=== PATIENT | female | born 1980 | race Caucasian/White ===

== ENCOUNTER 2020-06-03 10:57 | Emergency (ER) | payer BC, OTHER ==
[~2020-06-03] VITALS: Ht 170.2 cm; Wt 76.3 kg
[2020-06-03] MEDS ORDERED: LEFL1TAB4 PO (11:15)
[2020-06-03] MEDS ORDERED: DULO1CAP6 PO (11:15)
[2020-06-03] MEDS ORDERED: PRED5TA PO (11:15)
[2020-06-03] MEDS ORDERED: HYDR200T3 PO (11:15)
[2020-06-03] MEDS ORDERED: OMEP-218 PO (11:15)
[2020-06-03] MEDS ORDERED: ONDANSETRON 4MG/2ML VIAL IV ONE (11:45)
[2020-06-03] MEDS ORDERED: KETOROLAC 30 MG/ML 1ML VIAL IV ONE (11:45)
--- NOTE | 2020-06-03 12:21 | REP ---
INDICATION: r flank pain. The patient indicates that she has a cholecystectomy, appendectomy and partial hysterectomy. COMPARISON: None. TECHNIQUE: Abdomen and pelvis CT without IV or bowel contrast. FINDINGS: There is a 2.3 mm nonobstructive right renal calculus. There are no left renal calculi. There are no ureteral calculi on the right or the left. There are no bladder calculi. There is no hydronephrosis on the right or the left. The visualized lung masterson are unremarkable. No the unenhanced parotid hepatic parenchyma is unremarkable. There are surgical clips in the gallbladder fossa. The pancreas, spleen and adrenals are unremarkable. The abdominal aorta is unremarkable. The bowel and mesentery are unremarkable. Pelvis: The vaginal cuff and adnexa are unremarkable. The bladder is unremarkable. There is no ascites or adenopathy. There are bilateral L5 pars interarticularis defects. There is no spondylolisthesis. IMPRESSION: There is a small nonobstructive right renal calculus. There are no left renal calculi. There are no ureteral calculi. There is no hydronephrosis. There is bilateral L5 spondylolysis without associated spondylolisthesis. Otherwise, negative CT of the abdomen and pelvis. <Electronically signed by Daniel Ellsworth > 06/03/20 2210
[2020-06-03 13:13] LABS: BASO # 0.1 10^3/uL (0.0-0.2); BASO % 0.5 % (0.0-1.0); EOS # 0.1 10^3/uL (0.0-0.5); EOS % 0.5 % (0.0-3.0); HEMATOCRIT 43.9 % (36.0-47.0); HEMOGLOBIN 13.9 g/dl (12.0-15.5); MEAN CORPUSCULAR HGB CONC 31.7 g/dl (32.0-36.5); MEAN CORPUSCULAR VOLUME 91.5 fl (80.0-96.0); MONO # 0.8 10^3/uL (0.0-0.8); MONO % 7.5 % (0.0-5.0); NEUTROPHILS # 8.2 10^3/uL (1.5-8.5); NEUTROPHILS % 80.6 % (36.0-66.0); PLATELET COUNT, AUTOMATED 292 10^3/uL (150-450); WHITE BLOOD COUNT 10.2 10^3/uL (4.0-10.0)
[2020-06-03 13:38] LABS: ALBUMIN 3.9 GM/DL (3.2-5.2); ALT/SGPT 35 U/L (12-78); BILIRUBIN,DIRECT 0.1 MG/DL (0.0-0.2); BILIRUBIN,TOTAL 0.3 MG/DL (0.2-1.0); BLOOD UREA NITROGEN 10 MG/DL (7-18); CALCIUM LEVEL 8.6 MG/DL (8.5-10.1); CARBON DIOXIDE LEVEL 29 MEQ/L (21-32); CHLORIDE LEVEL 108 MEQ/L (98-107); CREATININE FOR GFR 0.94 MG/DL (0.55-1.30); GLOMERULAR FILTRATION RATE > 60.0 (>60); GLUCOSE, FASTING 87 MG/DL (70-100); LIPASE 109 U/L (73-393); POTASSIUM SERUM 4.2 MEQ/L (3.5-5.1); SODIUM LEVEL 140 MEQ/L (136-145); TOTAL PROTEIN 7.1 GM/DL (6.4-8.2)
[2020-06-03 14:04] VITALS: BP 131/59
== END 2020-06-03 14:10 | disposition home or self-care (01) ==
LOC: M ED 10:57
DX: N20.0 Calculus of kidney (principal); R10.9 Unspecified abdominal pain; R11.0 Nausea; M43.06 Spondylolysis, lumbar region; K58.0 Irritable bowel syndrome with diarrhea; K21.9 Gastro-esophageal reflux disease without esophagitis; F33.9 Major depressive disorder, recurrent, unspecified; Z79.899 Other long term (current) drug therapy
CPT/HCPCS: 74176; 80048; 80076; 81001; 83690; 85025; 96374; 96375; 99284; J1885; J2405